=== PATIENT | female | born 1970 | race African-American/Black ===

== ENCOUNTER 2017-04-23 09:55 | Emergency (ER) | payer SELFPAY ==
[~2017-04-23] VITALS: Ht 162.6 cm; Wt 76.0 kg
[2017-04-23 09:56] VITALS: BP 115/79
[2017-04-23] MEDS ORDERED: HYDR-523 PO (10:04)
[2017-04-23] MEDS ORDERED: IBUP-2030 PO (10:05)
== END 2017-04-23 15:20 | disposition home or self-care (01) ==
LOC: ER 14:30
DX: M54.2 Cervicalgia (principal); M54.9 Dorsalgia, unspecified; R51 Headache; X58.XXXA Exposure to other specified factors, initial encounter; Y93.89 Activity, other specified; Y99.0 Civilian activity done for income or pay; Y92.89 Other specified places as the place of occurrence of the external cause
CPT/HCPCS: 99281